=== PATIENT | male | born 1940 | race African-American/Black ===

== ENCOUNTER 2016-12-21 12:27 | Inpatient (IN) | payer OTHER, MEDICARE ==
--- NOTE | 2016-12-21 13:18 | PDOC ---
History of Present Illness - General Chief Complaint: Altered Mental Status Stated Complaint: (PCP SENT) FOR EVALUATION Time Seen by Provider: 12/21/16 12:50 History Source: Patient Exam Limitations: No Limitations - History of Present Illness Initial Comments: 12/21/16 13:40 76y M hx of dm, htn, hl, cad muitple recent strokes dx as an outpatient presents for evaluation. The pt had a stroke in Oct and again in Nov, both had outpatient MRIs. The patient went to speech rehab today and the rehab person said they should probably get admitted fo ra workup. The patient has otherwise been following up with PMD (Dr. Costa) and an neurologist at [place] for workup. Pt currently has a holter monitor. per the family, there seems to be worsening of his speech - no new weakness, fever/chills, chest pain, headache, dizziness, n/v, or other concerns.. They called dr. Costa who sent him to the ED. Per dr. Costa, who saw him in early nov, he was mildly aphasic but his speech was intellible NIH Stroke Scale - Last Known Well Date/Time & Onset Date Last Known Well: 11/25/16 Time Last Known Well: 22:00 - Initial Evaluation Level of consciousness: Alert Best gaze (horizontal eye movement): Normal Visual field testing: No visual field loss Facial paresis (Show teeth/raise eyebrows/close eyes tight): Normal symmetrical movement Motor Function: Left Arm: Normal Motor Function: Right Arm: Normal (extends arm 90 (or 45) degrees for 10 seconds without drift Motor Function: Left Leg: Normal (extends leg 30 degrees for 5 seconds without drift) Motor Function: Right Leg: Normal (extends leg 30 degrees for 5 seconds without drift) Limb Ataxia: No ataxia Sensory(Use pinprick test arms,legs,trunk,face/side to side): Normal Best language (Describe picture, name items, read sentences): Severe aphasia Past History - Past Medical History Allergies/Adverse Reactions: Allergies Allergy/AdvReac Type Severity Reaction Status Date / Time No Known Allergies Allergy Unverified 12/21/16 12:32 Home Medications: Ambulatory Orders Amlodipine Besylate [Norvasc -] 2.5 mg PO DAILY 12/21/16 Aspirin [Aspirin EC] 81 mg PO DAILY 12/21/16 Carvedilol [Coreg] 25 mg PO BID 12/21/16 Finasteride 5 mg PO DAILY 12/21/16 Folic Acid 0.4 mg PO DAILY 12/21/16 Glipizide/Metformin HCl [Glipizide-Metformin 5-500 mg] 1 each PO TID 12/21/16 Lisinopril/Hydrochlorothiazide [Lisinopril-Hctz 20-25 mg Tab] 1 each PO DAILY Sitagliptin Phosphate [Januvia] 100 mg PO DAILY 12/21/16 Spironolactone 25 mg PO DAILY 12/21/16 Cardiac Disorders: Yes (afib?) Diabetes: Yes HTN: Yes Hypercholesterolemia: Yes Other medical history: angioplasty - Psycho/Social/Smoking Cessation Hx Suicidal Ideation: No Smoking History: Never smoked Information on smoking cessation initiated: No Hx Alcohol Use: No Drug/Substance Use Hx: No Substance Use Type: None Review of Systems - Review of Systems Able to Perform ROS?: Yes Comments:: 12/21/16 13:52 Constitutional - no reported Fever, Chills, weakness, HEENT: no reported vision changes, sore throat Respiratory: no reported cough, sob, hemoptysis Cardiac: no reported chest pain, palpitations, light headedness, leg swelling Abd/GI: no reported abd pain, nausea, vomiting, blood per rectum, melena, diarrhea : no reported dysuria, frequency, discharge Musculskelatal - no reported back pain, joint swelling skin - no reported bruising, erythema, rash neurological: +aphasia no reported headache, numbness, focal weakness, tingling , ataxia, weakness hematologic: no reported anemia, easy bruising, easy bleeding *Physical Exam - Vital Signs Last Vital Signs Temp Pulse Resp BP Pulse Ox 98.1 F 81 17 128/64 98 12/21/16 12:30 12/21/16 12:30 12/21/16 12:30 12/21/16 12:30 12/21/16 12:30 - Physical Exam Comments: 12/21/16 13:53 GENERAL: The patient is awake, alert, and fully oriented, Nontoxic - in no acute distress. HEAD: Normocephalic, atraumatic. EYES: extraocular movements intact, sclera anicteric, conjunctiva clear. ENT: Normal voice, Moist mucous membranes. NECK: Normal range of motion, supple LUNGS: Breath sounds equal, clear to auscultation bilaterally. No wheezes, no rhonchi, no rales. HEART: Regular rate and rhythm, normal S1 and S2 without murmur, rub or gallop. ABDOMEN: Soft, nontender, normoactive bowel sounds. No guarding, no rebound. . No CVA tenderness EXTREMITIES: Normal range of motion, no edema. No clubbing or cyanosis. No cords, erythema, or tenderness. PSYCH: Normal mood, normal affect. SKIN: Warm, Dry, normal turgor, NEURO: Mental status: The patient is oriented x3. Cranial nerves: Cranial nerves II through XII are intact Motor: The upper extremities are 5 over 5 in all muscle groups. The lower extremities are 5 over 5 in all muscle groups. Negative pronator drift Sensation: Sensation is intact to light touch throughout. romberg negative Cerebellar: Liyugk-sdeeab-jskk is normal in both upper extremities. Heel-knee- walter is normal in both lower extremities. rapid alternating movements are normal. Reflexes: 2+ and symmetric in the upper and lower extremities. Gait: Normal. Heel and toe walking are normal. Tandem gait is normal. Speech: Aphasic Heart Score/ECG Review - ECG Impressions Comment:: 12/21/16 14:46 Twelve-lead EKG was performed and reviewed by me. There is normal sinus rhythm with a normal rate. Rate of 74 first degree AV block PVCs present Right bundle-branch block There are no ST or T wave abnormalities. ED Treatment Course - LABORATORY CBC & Chemistry Diagram: 12/21/16 13:28 12/21/16 13:28 Medical Decision Making - Medical Decision Making 12/21/16 13:18 12/21/16 16:22 the pts labs reviewed noted for mild elevation of cr with k of 5.[address] costa and the family - it seems there has been changes /worsening of the pts aphasia will admit hte pt for further management due to the patients multiple cvas and worsening sypmtoms/speech will page dr. patel regarding admission. 12/21/16 16:[address] patel agreed with admission for progerssive symtoms an dstroke workup Case discussed in detail with admitting physician including history, physical exam and ancillary studies. Admitting physician has assumed care for the patient, will follow all pending diagnostics and will complete the evaluation and treatment. *DC/Admit/Observation/Transfer Diagnosis at time of Disposition: Aphasia, Renal insufficiency - Discharge Dispostion Condition at time of disposition: Guarded Admit: Yes - Referrals Referrals: Jamar Costa MD [Primary Care Provider] -
[2016-12-21 13:56] LABS: BASOPHIL 0.4 % (0-2.0); EOSINOPHIL 3.3 % (0-4.5); MCH 30.5 pg (25.7-33.7); MEAN CELL VOLUME 92.3 fl (80-96); NEUTROPHILS 67.3 % (42.8-82.8); PLATELET COUNT 134 K/MM3 (134-434); RDW 13.2 % (11.9-15.9); WHITE BLOOD COUNT 8.5 K/mm3 (4.0-10.0)
[2016-12-21 14:07] LABS: INR 1.02 (0.82-1.09); PROTHROMBIN TIME (PATIENT) 11.2 SEC (9.98-11.88)
[2016-12-21 14:09] LABS: ALBUMIN 3.6 g/dl (3.4-5.0); BILIRUBIN,TOTAL 0.5 mg/dL (0.2-1.0); CALCIUM 9.1 mg/dL (8.5-10.1); CREATININE 1.6 mg/dL (0.7-1.3); TOT PROT 7.1 g/dl (6.4-8.2)
--- NOTE | 2016-12-21 15:25 | EKG ---
Test Reason : Blood Pressure : / mmHG Vent. Rate : 074 BPM Atrial Rate : 074 BPM P-R Int : 216 ms QRS Dur : 122 ms QT Int : 390 ms P-R-T Axes : 064 087 065 degrees QTc Int : 432 ms SINUS RHYTHM WITH SINUS ARRHYTHMIA WITH 1ST DEGREE A-V BLOCK WITH OCCASIONAL PREMATURE VENTRICULAR COMPLEXES RIGHT BUNDLE BRANCH BLOCK ABNORMAL ECG NO PREVIOUS ECGS AVAILABLE Confirmed by LEILA WHITT, RICHIE ([id number]) on 12/21/2016 3:24:42 PM Referred By: Confirmed By:RICHIE DEE MD
[2016-12-21 18:09] LABS: PH,URINE 6.5 (5.0-8.0); URINE APPEARANCE CLEAR; URINE BILIRUBIN NEGATIVE (NEGATIVE); URINE BLOOD 1+ (NEGATIVE); URINE COLOR LT. YELLOW; URINE GLUCOSE (UA) NEGATIVE (NEGATIVE); URINE KETONE NEGATIVE (NEGATIVE); URINE LEUK ESTERASE NEGATIVE (NEGATIVE); URINE NITRITE NEGATIVE (NEGATIVE); URINE PROTEIN 1+ (NEGATIVE); URINE UROBILINOGEN 0.2 E.U/dl E.U./dl (0.2-1.0)
[2016-12-21 19:37] VITALS: BMI 31.2
[2016-12-21] MEDS ORDERED: INFLUENZA VACCINE 45 MCG/0.5 ML (MDV 16-17) IM ONE (19:37)
[2016-12-21] MEDS: ATORVASTATIN CA 10 MG TABLET (FP) PO SCH (21:46)
[2016-12-21] MEDS: CARVEDILOL 25 MG TABLET (FP) PO SCH (21:46)
[2016-12-21] MEDS ORDERED: PATIENT'S OWN MEDICATION (NON-FORMULARY) (Glipizide/Metformin Hcl [Glipizide-Metformin 5-5 PO SCH (22:00)
[2016-12-22] MEDS: INSULIN (NOVOLOG) ASPART 100 UNITS/ML 10ML VIAL SQ SCH ×3 (06:12→17:22)
[2016-12-22] MEDS: glipiZIDE 5 MG TABLET (FP) PO SCH ×3 (06:12→17:21)
[2016-12-22] MEDS ORDERED: INFLUENZA VACCINE 45 MCG/0.5 ML (MDV 16-17) IM ONE (06:15)
[2016-12-22] MEDS ORDERED: metFORMIN HCL 500 MG TABLET (FP) PO SCH (07:00)
[2016-12-22 08:28] LABS: BASOPHIL 0.7 % (0-2.0); EOSINOPHIL 3.2 % (0-4.5); MCH 30.5 pg (25.7-33.7); MCHC 33.2 g/dl (32.0-35.9); MEAN CELL VOLUME 91.9 fl (80-96); MEAN PLT VOLUME 10.1 fl (7.5-11.1); NEUTROPHILS 58.3 % (42.8-82.8); PLATELET COUNT 128 K/MM3 (134-434); RDW 13.1 % (11.9-15.9); WHITE BLOOD COUNT 8.7 K/mm3 (4.0-10.0)
[2016-12-22] MEDS ORDERED: ACETAMINOPHEN 325 MG TABLET (FP) PO PRN (08:35)
--- NOTE | 2016-12-22 08:38 | HP ---
Admitting History and Physical - Primary Care Physician PCP: Jamar Costa - Advance Directives Advance Directives: Yes: Health Care Proxy - Smoking History Smoking history: Never smoked - Alcohol/Substance Use Hx Alcohol Use: No <Caity Dickinson - Last Filed: 12/22/16 08:37> - Admission History of Present Illness: The patient is a 76-year-old male with a significant past medical history of hypertension, hyperlipidemia, coronary artery disease (currently on a Holter Monitor), recent strokes (diagnosed as outpatient with MRIs on 10/2016 and 2016) and diabetes mellitus who was sent to the emergency department by his PMD , Dr. Costa, yesterday, for further evaluation of speech difficulty. Patient was in speech rehabilitation yesterday, where is was noted to have difficulty with his speech and was advised for hospital admission. Family states that patient's speech has worsened. No new weakness, headaches, fever, chills. Patient has been following up with his PMD, Dr. Jamar Costa and his Neurologist (who is affiliated with [facility]). Patient sent to [facility] for further evaluation. Family requests different Neurologist from [facility]. CT of the head did not show any acute CVA. Patient admitted to Telemetry for further monitoring. Patient seen and examined today in Telemetry. Chart reviewed. Case was also discussed with patient's private PMD, yesterday. Patient comfortable. Denies chest pain or shortness of breath. Denies headaches or dizziness. Speech is clear. Walks with cane. No fever or chills. Denies urinary or bowel trouble. History Source: Patient, Medical Record <Alecia Patel - Last Filed: 12/22/16 10:29> Home Medications <Caity Dickinson - Last Filed: 12/22/16 08:37> <Alecia Patel - Last Filed: 12/22/16 10:29> - Allergies Allergies/Adverse Reactions: Allergies Allergy/AdvReac Type Severity Reaction Status Date / Time No Known Allergies Allergy Unverified 12/21/16 12:32 - Home Medications Home Medications: Ambulatory Orders Amlodipine Besylate [Norvasc -] 2.5 mg PO DAILY 12/21/16 Aspirin [Aspirin EC] 81 mg PO DAILY 12/21/16 Atorvastatin Ca [Lipitor] 80 mg PO DAILY 12/21/16 Carvedilol [Coreg] 25 mg PO BID 12/21/16 Clopidogrel Bisulfate [Plavix -] 75 mg PO DAILY 12/21/16 Finasteride 5 mg PO DAILY 12/21/16 Folic Acid 0.4 mg PO DAILY 12/21/16 Glipizide/Metformin HCl [Glipizide-Metformin 5-500 mg] 1 each PO TID 12/21/16 Lisinopril/Hydrochlorothiazide [Lisinopril-Hctz 20-25 mg Tab] 1 each PO DAILY Sitagliptin Phosphate [Januvia] 100 mg PO DAILY 12/21/16 Spironolactone 25 mg PO DAILY 12/21/16 Review of Systems Findings/Remarks: See HPI. <Alecia Patel - Last Filed: 12/22/16 10:29> Physical Examination Vital Signs: Vital Signs Temperature 98 F 12/22/16 05:36 Pulse Rate 65 12/22/16 05:36 Respiratory Rate 20 12/22/16 05:36 Blood Pressure 133/73 12/22/16 05:36 O2 Sat by Pulse Oximetry (%) 97 12/21/16 21:00 Labs: CBC, BMP 12/22/16 06:00 <Caity Dickinson - Last Filed: 12/22/16 08:37> Vital Signs: Vital Signs Temperature 98.8 F 12/22/16 09:35 Pulse Rate 72 12/22/16 09:35 Respiratory Rate 20 12/22/16 09:35 Blood Pressure 130/70 12/22/16 09:35 O2 Sat by Pulse Oximetry (%) 97 12/21/16 21:00 Constitutional: Yes: No Distress, Calm Eyes: Yes: Conjunctiva Clear, PERRL Neck: Yes: Supple, Trachea Midline, Other (No carotid bruits.) Cardiovascular: Yes: Regular Rate and Rhythm Respiratory: Yes: CTA Bilaterally Gastrointestinal: Yes: Soft Edema: No Neurological: Yes: Alert, Other (Left sided weakness. 5/5 right side. 4/5 left side.) Psychiatric: Yes: Alert Labs: CBC, BMP 12/22/16 06:00 12/22/16 06:00 <Alecia Patel - Last Filed: 12/22/16 10:29> Imaging - Results Chest X-ray: Report Reviewed Cat Scan: Report Reviewed EKG: Report Reviewed <Alecia Patel - Last Filed: 12/22/16 10:29> Problem List - Problems (1) Renal insufficiency Code(s): N28.9 - DISORDER OF KIDNEY AND URETER, UNSPECIFIED (2) CVA (cerebral vascular accident) Code(s): I63.9 - CEREBRAL INFARCTION, UNSPECIFIED (3) HTN (hypertension) Code(s): I10 - ESSENTIAL (PRIMARY) HYPERTENSION (4) Diabetes mellitus Code(s): E11.9 - TYPE 2 DIABETES MELLITUS WITHOUT COMPLICATIONS (5) Hyperlipidemia Code(s): E78.5 - HYPERLIPIDEMIA, UNSPECIFIED <Alecia Patel - Last Filed: 12/22/16 10:29> Assessment/Plan - Recent CVA. - No acute CVA. - Rule out arrythmia. - Monitor on Telemetry. - Cardiology consult noted and appreciated. - Discontinue Glucophage for now. - Monitor blood sugars. - Speech is clear now. - Physical Therapy. - Neurology consult pending. - Medications reviewed. - Check US of carotids. - DVT Prophylaxis. - Will follow. Documentation prepared by Alecia Patel, acting as a medical director for Caity Dickinson MD. <Alecia Patel - Last Filed: 12/22/16 10:29>
--- NOTE | 2016-12-22 09:09 | PN ---
Progress Note (short form) - Note Progress Note: Consult Dictated IMP: DM, multiple prior CVAS Admitted for worsening speech, concern for new CVA REC: 1. TELE: r/u occult AF 2. Echo and carotid US 3. Neuro eval.
[2016-12-22 09:21] LABS: ALBUMIN 3.5 g/dl (3.4-5.0); BILIRUBIN,TOTAL 0.7 mg/dL (0.2-1.0); CALCIUM 9.1 mg/dL (8.5-10.1); CREATININE 1.3 mg/dL (0.7-1.3)
--- NOTE | 2016-12-22 09:48 | CONS ---
DATE OF CONSULTATION: 12/22/2016 REQUESTING PHYSICIAN: Sonia Cabrera MD REASON FOR CONSULTATION: CVA. HISTORY OF PRESENT ILLNESS: The patient is a 76-year-old male admitted for concern of new CVA. He cannot really provide a history due to speech disturbance and therefore the history was obtained from the review of records and from the nurse. The patient has numerous cardiac risk factors, including diabetes and previous stroke x2. He was previously evaluated at an outside institution and is currently in the process of wearing an extended outpatient Holter monitor. He was admitted again due to worsening speech, concern for a new CVA. The patient denies chest pain or palpitations. He denies recent syncope. His presenting EKG shows sinus rhythm. Telemetry thus far has shown normal sinus rhythm with PVCs and his presenting EKG showed normal sinus rhythm with 1st-degree AV block, APC aberrantly conducted, no pathological Q waves, and no acute ST changes. PAST MEDICAL HISTORY: Includes prior CVAs, diabetes, hypertension, BPH. ALLERGIES: He has no known drug allergies. CURRENT MEDICATIONS: Spironolactone 25 mg daily, carvedilol 25 b.i.d., aspirin 81 daily, folic acid 0.5 daily, glipizide 5 mg t.i.d., hydrochlorothiazide 25 daily , sitagliptin 100 mg daily, atorvastatin 100 mg at bedtime, Lovenox 30 mg subcutaneous daily, amlodipine 2.5 daily, insulin sliding scale, lisinopril 20 daily, finasteride 5 daily. FAMILY HISTORY: Could not be obtained due to his clinical status. SOCIAL HISTORY: No smoking history recorded. PHYSICAL EXAMINATION:Vital Signs: He is afebrile, temperature 98.5, pulse 65, blood pressure 133/73, O2 saturation 97 on room air. Neck: Supple, with no bruits. Heart: S1, 2, regular. No murmurs. Chest: Clear. Abdomen: Soft, nontender. Extremities: With no significant pitting edema. LABORATORIES: White count 8.7, hematocrit 35.7, platelets 128. Sodium 139, potassium 5.5, BUN 35, creatinine 1.6, glucose 284, AST 13, ALT 21, alkaline phosphatase 92, albumin 36. CT scan showed numerous old CVAs but nothing acute. IMPRESSION: A 76-year-old male with diabetes and prior cerebrovascular accidents now admitted for worsening speech with concern for new cerebrovascular accident. PLAN: 1. Telemetry to rule out occult atrial fibrillation. 2. Continue aspirin. 3. Echocardiogram and carotid ultrasound. 4. Neurologic evaluation. Thank you for the consultation. LIZETTE PEREZ M.D. [id number] MTDD
[2016-12-22] MEDS ORDERED: PATIENT'S OWN MEDICATION (NON-FORMULARY) (Lisinopril/Hydrochlorothiazide [Lisinopril-Hctz PO SCH (10:00)
[2016-12-22] MEDS: FOLIC ACID 1 MG TABLET (FP) PO SCH (10:09)
[2016-12-22] MEDS: ASPIRIN COATED 81 MG TABLET.EC PO SCH (10:09)
[2016-12-22] MEDS: CARVEDILOL 25 MG TABLET (FP) PO SCH ×2 (10:09→21:36)
[2016-12-22] MEDS: FINASTERIDE 5 MG TABLET (FP) PO SCH (10:09)
[2016-12-22] MEDS: SPIRONOLACTONE 25 MG TABLET (FP) PO SCH (10:09)
[2016-12-22] MEDS: sitaGLIPtin PHOSPHATE 100 MG TABLET (FP) PO SCH (10:09)
[2016-12-22] MEDS: ENOXAPARIN NA (PORCINE) 30 MG/0.3 ML DISP.SYRIN SQ SCH (10:11)
[2016-12-22] MEDS: HYDROCHLOROTHIAZIDE 25 MG TABLET (FP) PO SCH (10:11)
[2016-12-22] MEDS: LISINOPRIL 20 MG TABLET (FP) PO SCH (10:11)
[2016-12-22] MEDS: amLODIPine BESYLATE 2.5 MG TABLET (FP) PO SCH (10:11)
--- NOTE | 2016-12-22 10:55 | CONSULT ---
Admitting History and Physical - Primary Care Physician PCP: Sonia Cabrera - Admission History of Present Illness: Per EMR: "History of Present Illness Initial Comments: 12/21/16 13:40 76y M hx of dm, htn, hl, cad muitple recent strokes dx as an outpatient presents for evaluation. The pt had a stroke in Oct and again in Nov, both had outpatient MRIs. The patient went to speech rehab today and the rehab person said they should probably get admitted fo ra workup. The patient has otherwise been following up with PMD (Dr. Costa) and an neurologist at [place] for workup. Pt currently has a holter monitor. per the family, there seems to be worsening of his speech - no new weakness, fever/chills, chest pain, headache, dizziness, n/v, or other concerns.. They called dr. Costa who sent him to the ED. Per dr. Costa, who saw him in early nov, he was mildly aphasic but his speech was intelligible" Selected Entries 12/21/16 12/21/16 12/21/16 12:30 18:50 19:15 Temperature 98.1 F 98.5 F 97.7 F 12/22/16 12/22/16 12/22/16 02:11 05:36 09:35 Temperature 98.6 F 98 F 98.8 F Laboratory Tests 12/21/16 12/22/16 13:28 06:00 WBC 8.5 8.7 History Source: Family Member, Medical Record Limitations to Obtaining History: Other (Moderate to severe expressive Aphasia/ mild to moderate receptive Aphasia.o x 3.) - Advance Directives Advance Directives: Yes: Health Care Proxy - Smoking History Smoking history: Never smoked - Alcohol/Substance Use Hx Alcohol Use: No - Social History Usual Living Arrangement: Yes: With Spouse Occupation: retired History - Admission Reason For Visit: APHASIA - Diagnostics X-ray: Report Reviewed CT Scan: Report Reviewed MRI: Report Reviewed - General Mental Status: Alert and Oriented, Awake and Alert, Able to Follow Commands ( follows 1 stage but not 2 stage commands) Attention: Intact Ability to Follow Directions: Fair Head/Neck Control: WFL - Hearing Hearing: Normal Hearing Aide: No Speech Evaluation - Communication Primary Language: GERMAN Communication: Yes: Simple Responses, Aphasia (responds best in single words during conversation and confrontation naming. Significant breakdown in expressive language during propositional speech tasks, with grammatic error, word omissions,and neologisms.) Oral Expression Ability: Yes: Moderate Impairment, Severe Impairment - Speech Production Able to Make Needs Known: Yes: Moderately Impaired, Severely Impaired Intelligibility: Yes: WNL - Speech Characteristics Voice Loudness: Normal Voice Pitch: Yes: Normal Voice Phonatory-based Quality: Yes: Normal Speech Pattern: Normal Nasal Resonance: Normal Articulation: Yes: Precise - Language/Auditory Comprehension Follows: Yes: 1 Stage Simple Commands Observation: Able to respond to yes/no queries: Yes, Comprehends Conversational Speech: Yes (simple 1 stage and simple conversation), Benefits from Slow Speech : Yes, Benefits from Repetiton: Yes, Benefits from Increased Volume of Speech: No - Language/Verbal Expression Aphasia: Yes: Nonfluent, Anomia, Impaired Repetition (repeats short high probabilty sentences but not longer o9r low prob), Paraphrasic Errors, Neologisms, Sound Errors, Grammatic Errors (omission of function words intermittently) Able to Respond to Simple Queries: Yes: Moderately Impaired, Severely Impaired Able to Communicate Wants and Needs: Yes: Moderately Impaired, Severely Impaired Functional Communication Status: Yes: Moderately Impaired, Severely Impaired - Swallow Evaluation/Bedside Assessment Current Nutritional Intake: Regular, Thin Liquids Dentition: Yes: Adequate Facial Symmetry at Rest: Symmetrical Facial Symmetry on Retraction: Symmetrical Facial Movement: Controlled Against Resistance Opening: Normal Against Resistance Closing: Normal Pucker Lips: Normal Smile: Normal Lingual Movement: Normal Lingual Speed of Movement: Normal Lingual Movement Strgth Against Opposition: Normal Lingual Movement Characteristics: Normal Velopharyngeal Movement: Normal Laryngeal Elevation: WFL Laryngeal Movement: Able to Palpate Rate of Intake: WFL Bolus Size: WFL Labial Seal: WFL Chewing: WFL Oral Prep Time: WFL A-P Transit: WFL Pocketing: None Timing of Swallow: WFL Coughing/Throat Clear: No Change in Voice: No Recommendations - Speech Evaluation, Impression/Plan Impression: Moderate to severe expressive Aphasia/mild to moderate receptive Aphasia. o x 3. Excellent rehab candidate for intensive sp/lang tx. Family educated on Aphasia and ways to facilitate compensation and recovery. - Disposition Discharge to: Rehabilitation Center - Dysphagia Impressions/Plan Swallowing Skills: WFL Dysphagia Impressions: No Impairment *Silent aspiration: cannot be R/O at bedside - Recommendations Diet Consistency: Regular Medication Administration: Whole with water Liquids: Thin Liquids
--- NOTE | 2016-12-22 18:58 | CONSULT ---
Consult - text type - Consultation Consultation Note: NEUROLOGICAL CONSULTATION is greatly appreciated: This 76 yo RH man with h/o HTN, DM, Chol, ASHD is maintained on amlodipine, ASAQ, carvedilol, furosamide, glipizide, metformin, lisinopril, HCTZ , spironolacftone and januvia. S/P Left hipo surgery in childhood. Has always walked on L toes. His describes admissions for "strokes" in October and november. In October he "got flushed and sweaty" and in November he "had a BP of 200." She also describes her as "going steadily down since then." He had MRI's x 2 ([facility]) and has been followed at [facility]. Now admitted after Speech therapist apparently detected deterioration. CT of head (reviewed): Diffuse, b/l, frontotemporal atrophy. Very old R internal capsule CVA with encephalomalacia and disproportionate enlargement of the right lateral ventrical. Bifrontal white matter edema vs. microvasculopathy. BE: No bruits. Cor: Reg. No evidence of external head trauma. NEURO: Non-fluent aphasia with perseveration, dysnomia. Follows most commands. + Glabella, snout, suck, grasps. CN's: Full hernandes to threat. [id number]. Full EOM's. No dysphagia. No facial weakness Motor: No drift or tremor. Normal strength. Normal reflexes. Toes are downgoing. Coord: No FTN Dystaxia. Sensory: Normal Gait: Slightly wide-based. Left toe walking. Unsteady (walks with walker at home.) IMP: 1. Multiple REHAB DIRECTOR microinfarcts. Possible old Right frontal lobar hemorrhage (amyloid angiopathy?). 2. A Moderate OMS (dementia) is also likely present. 3. Strokes may not fully explain progressive aphasia. Consider a progressive degenerative condition such as Primary Progressive Aphasia or Frontotemporal dementia. SUGGEST: Update MRI of brain (C-) Check B12, TSH, RPR. R/O toxic metabolic factors such as infection (repeat UA, C&S). Thank you very much, Eric Camreon MD
[2016-12-22] MEDS: ATORVASTATIN CA 10 MG TABLET (FP) PO SCH (21:36)
[2016-12-23] MEDS: glipiZIDE 5 MG TABLET (FP) PO SCH ×3 (06:28→18:15)
[2016-12-23] MEDS: INSULIN (NOVOLOG) ASPART 100 UNITS/ML 10ML VIAL SQ SCH ×3 (06:28→16:45)
[2016-12-23 07:36] LABS: THYROID STIMULATING HORMONE 1.83 uIU/ml (0.358-3.74)
[2016-12-23] MEDS: FINASTERIDE 5 MG TABLET (FP) PO SCH (10:35)
[2016-12-23] MEDS: HYDROCHLOROTHIAZIDE 25 MG TABLET (FP) PO SCH (10:35)
[2016-12-23] MEDS: SPIRONOLACTONE 25 MG TABLET (FP) PO SCH (10:35)
[2016-12-23] MEDS: CARVEDILOL 25 MG TABLET (FP) PO SCH ×2 (10:36→21:20)
[2016-12-23] MEDS: ASPIRIN COATED 81 MG TABLET.EC PO SCH (10:36)
[2016-12-23] MEDS: sitaGLIPtin PHOSPHATE 100 MG TABLET (FP) PO SCH (10:36)
[2016-12-23] MEDS: LISINOPRIL 20 MG TABLET (FP) PO SCH (10:36)
[2016-12-23] MEDS: FOLIC ACID 1 MG TABLET (FP) PO SCH (10:36)
[2016-12-23] MEDS: amLODIPine BESYLATE 2.5 MG TABLET (FP) PO SCH (10:36)
[2016-12-23] MEDS: ENOXAPARIN NA (PORCINE) 30 MG/0.3 ML DISP.SYRIN SQ SCH (10:38)
--- NOTE | 2016-12-23 11:12 | PN ---
Progress Note, Physician History of Present Illness: seen and examined today in nad. no overnight events. no new complaints. - Current Medication List Current Medications: Active Medications Acetaminophen (Tylenol -) 650 mg PO Q6H PRN PRN Reason: FEVER OR PAIN Amlodipine Besylate (Norvasc -) 2.5 mg PO DAILY [facility] Last Admin: 12/23/16 10:36 Dose: 2.5 mg Aspirin (Ecotrin -) 81 mg PO DAILY [facility] Last Admin: 12/23/16 10:36 Dose: 81 mg Atorvastatin Calcium (Lipitor -) 10 mg PO HS [facility] Last Admin: 12/22/16 21:36 Dose: 10 mg Carvedilol (Coreg -) 25 mg PO BID [facility] Last Admin: 12/23/16 10:36 Dose: 25 mg Enoxaparin Sodium (Lovenox -) 30 mg SQ DAILY [facility] Last Admin: 12/23/16 10:38 Dose: 30 mg Finasteride (Proscar -) 5 mg PO DAILY [facility] Last Admin: 12/23/16 10:35 Dose: 5 mg Folic Acid (Folic Acid -) 0.5 mg PO DAILY [facility] Last Admin: 12/23/16 10:36 Dose: 0.5 mg Glipizide (Glucotrol -) 5 mg PO TIDAC [facility] Last Admin: 12/23/16 10:35 Dose: 5 mg Hydrochlorothiazide (Hctz -) 25 mg PO DAILY [facility] Last Admin: 12/23/16 10:35 Dose: 25 mg Insulin Aspart (Novolog Vial) 0 units SQ TIDAC [facility] PRN Reason: Protocol Last Admin: 12/23/16 10:45 Dose: 8 units Lisinopril (Prinivil) 20 mg PO DAILY [facility] Last Admin: 12/23/16 10:36 Dose: 20 mg Sitagliptin Phosphate (Januvia -) 100 mg PO DAILY [facility] Last Admin: 12/23/16 10:36 Dose: 100 mg Spironolactone (Aldactone -) 25 mg PO DAILY [facility] Last Admin: 12/23/16 10:35 Dose: 25 mg - Objective Vital Signs: Vital Signs Temperature 97.8 F 12/23/16 08:17 Pulse Rate 70 12/23/16 08:17 Respiratory Rate 18 12/23/16 08:17 Blood Pressure 119/67 12/23/16 08:17 O2 Sat by Pulse Oximetry (%) 98 12/23/16 08:17 Constitutional: Yes: Well Nourished, No Distress, Calm Eyes: Yes: Conjunctiva Clear, EOM Intact, PERRL HENT: Yes: Atraumatic, Normocephalic Neck: Yes: Supple, Trachea Midline Cardiovascular: Yes: Regular Rate and Rhythm, S1, S2. No: Bradycardia, Tachycardia, Pulse Irregular, Bruit, JVD, Gallop, Murmur, Rub, S3, S4, Varicosities Respiratory: Yes: Regular, CTA Bilaterally. No: Rales, Rhonchi, Wheezes Gastrointestinal: Yes: Normal Bowel Sounds, Soft. No: Distention, Tenderness Musculoskeletal: Yes: WNL Extremities: Yes: WNL Edema: No Peripheral Pulses WNL: Yes Peripheral Pulses: Left Doralis Pedis: 2+, Right Dorsalis Pedis: 2+ Integumentary: Yes: WNL Neurological: Yes: Alert, Aphasia Psychiatric: Yes: Alert Labs: CBC, BMP 12/22/16 06:00 12/22/16 06:00 INR, PTT INR 1.02 (0.82-1.09) 12/21/16 13:28 - ....Imaging Chest X-ray: Report Reviewed, Image Reviewed EKG: Report Reviewed, Image Reviewed Other: Report Reviewed, Image Reviewed (tele-nsr, pvcs) Assessment/Plan IMP: DM, multiple prior CVAS Admitted for worsening speech, concern for new CVA REC: Tele monitoring has shown nsr, pvcs, no sign of afib or aflutter Echo showed normal LV systolic function, no sig valvular abnormalities Carotid doppler showed moderate atherosclerosis with no sig stenosis Neuro eval appreciated Cont current medical regimen for now
--- NOTE | 2016-12-23 11:41 | PN ---
Progress Note, Physician Chief Complaint: Events noted No distress family at bedside pt speaks clear but has difficulty finding words he is forgetful - Current Medication List Current Medications: Active Medications Acetaminophen (Tylenol -) 650 mg PO Q6H PRN PRN Reason: FEVER OR PAIN Amlodipine Besylate (Norvasc -) 2.5 mg PO DAILY [facility] Last Admin: 12/23/16 10:36 Dose: 2.5 mg Aspirin (Ecotrin -) 81 mg PO DAILY [facility] Last Admin: 12/23/16 10:36 Dose: 81 mg Atorvastatin Calcium (Lipitor -) 10 mg PO HS [facility] Last Admin: 12/22/16 21:36 Dose: 10 mg Carvedilol (Coreg -) 25 mg PO BID [facility] Last Admin: 12/23/16 10:36 Dose: 25 mg Enoxaparin Sodium (Lovenox -) 30 mg SQ DAILY [facility] Last Admin: 12/23/16 10:38 Dose: 30 mg Finasteride (Proscar -) 5 mg PO DAILY [facility] Last Admin: 12/23/16 10:35 Dose: 5 mg Folic Acid (Folic Acid -) 0.5 mg PO DAILY [facility] Last Admin: 12/23/16 10:36 Dose: 0.5 mg Glipizide (Glucotrol -) 5 mg PO TIDAC [facility] Last Admin: 12/23/16 10:35 Dose: 5 mg Hydrochlorothiazide (Hctz -) 25 mg PO DAILY [facility] Last Admin: 12/23/16 10:35 Dose: 25 mg Insulin Aspart (Novolog Vial) 0 units SQ TIDAC [facility] PRN Reason: Protocol Last Admin: 12/23/16 10:45 Dose: 8 units Lisinopril (Prinivil) 20 mg PO DAILY [facility] Last Admin: 12/23/16 10:36 Dose: 20 mg Sitagliptin Phosphate (Januvia -) 100 mg PO DAILY [facility] Last Admin: 12/23/16 10:36 Dose: 100 mg Spironolactone (Aldactone -) 25 mg PO DAILY [facility] Last Admin: 12/23/16 10:35 Dose: 25 mg - Objective Vital Signs: Vital Signs Temperature 97.8 F 12/23/16 08:17 Pulse Rate 70 12/23/16 08:17 Respiratory Rate 18 12/23/16 08:17 Blood Pressure 119/67 12/23/16 08:17 O2 Sat by Pulse Oximetry (%) 98 03/18/17 08:17 Constitutional: Yes: No Distress Cardiovascular: Yes: Regular Rate and Rhythm Respiratory: Yes: CTA Bilaterally Gastrointestinal: Yes: Normal Bowel Sounds, Soft. No: Abdomen, Obese, Tenderness Edema: No Labs: CBC, BMP 12/22/16 06:00 12/22/16 06:00 INR, PTT INR 1.02 (0.82-1.09) 12/21/16 13:28 Problem List - Problems (1) Aphasia Code(s): R47.01 - APHASIA (2) CVA (cerebral vascular accident) Code(s): I63.9 - CEREBRAL INFARCTION, UNSPECIFIED (3) Diabetes mellitus Code(s): E11.9 - TYPE 2 DIABETES MELLITUS WITHOUT COMPLICATIONS (4) HTN (hypertension) Code(s): I10 - ESSENTIAL (PRIMARY) HYPERTENSION (5) Hyperlipidemia Code(s): E78.5 - HYPERLIPIDEMIA, UNSPECIFIED Assessment/Plan PLAN Carotid doppler- no stenosis BRAIN MRI--Acute and chronic small infarcts WIll need Speech therapy Family requesting [facility] Neurology eval noted Cardiology eval noted Will check Brain MRA Tele does not show afib/flutter
[2016-12-23] MEDS: ATORVASTATIN CA 10 MG TABLET (FP) PO SCH (21:20)
[2016-12-24] MEDS: glipiZIDE 5 MG TABLET (FP) PO SCH ×2 (06:05→17:19)
[2016-12-24] MEDS: INSULIN (NOVOLOG) ASPART 100 UNITS/ML 10ML VIAL SQ SCH ×3 (06:07→17:19)
--- NOTE | 2016-12-24 09:00 | PN ---
Progress Note, Physician Chief Complaint: at bedside Pt still has trouble speaking forgetful moves all extremities - Current Medication List Current Medications: Active Medications Acetaminophen (Tylenol -) 650 mg PO Q6H PRN PRN Reason: FEVER OR PAIN Amlodipine Besylate (Norvasc -) 2.5 mg PO DAILY [facility] Last Admin: 12/23/16 10:36 Dose: 2.5 mg Aspirin (Ecotrin -) 81 mg PO DAILY [facility] Last Admin: 12/23/16 10:36 Dose: 81 mg Atorvastatin Calcium (Lipitor -) 10 mg PO HS [facility] Last Admin: 12/23/16 21:20 Dose: 10 mg Carvedilol (Coreg -) 25 mg PO BID [facility] Last Admin: 12/23/16 21:20 Dose: 25 mg Enoxaparin Sodium (Lovenox -) 30 mg SQ DAILY [facility] Last Admin: 12/23/16 10:38 Dose: 30 mg Finasteride (Proscar -) 5 mg PO DAILY [facility] Last Admin: 12/23/16 10:35 Dose: 5 mg Folic Acid (Folic Acid -) 0.5 mg PO DAILY [facility] Last Admin: 12/23/16 10:36 Dose: 0.5 mg Glipizide (Glucotrol -) 5 mg PO TIDAC [facility] Last Admin: 12/24/16 06:05 Dose: 5 mg Hydrochlorothiazide (Hctz -) 25 mg PO DAILY [facility] Last Admin: 12/23/16 10:35 Dose: 25 mg Insulin Aspart (Novolog Vial) 0 units SQ TIDAC [facility] PRN Reason: Protocol Last Admin: 12/24/16 06:07 Dose: Not Given Lisinopril (Prinivil) 20 mg PO DAILY [facility] Last Admin: 12/23/16 10:36 Dose: 20 mg Sitagliptin Phosphate (Januvia -) 100 mg PO DAILY [facility] Last Admin: 12/23/16 10:36 Dose: 100 mg Spironolactone (Aldactone -) 25 mg PO DAILY [facility] Last Admin: 12/23/16 10:35 Dose: 25 mg - Objective Vital Signs: Vital Signs Temperature 97.3 F L 12/24/16 08:42 Pulse Rate 74 12/24/16 08:42 Respiratory Rate 20 12/24/16 08:43 Blood Pressure 111/61 12/24/16 08:42 O2 Sat by Pulse Oximetry (%) 98 12/24/16 08:43 Constitutional: Yes: No Distress Cardiovascular: Yes: Regular Rate and Rhythm Respiratory: Yes: CTA Bilaterally Gastrointestinal: Yes: Normal Bowel Sounds, Soft. No: Distention, Tenderness Edema: No Neurological: Yes: Alert ...Motor Strength: WNL Psychiatric: Yes: Alert Labs: CBC, BMP 12/22/16 06:00 12/22/16 06:00 INR, PTT INR 1.02 (0.82-1.09) 12/21/16 13:28 Assessment/Plan PLAN Carotid doppler- no stenosis BRAIN MRI--Acute and chronic small infarcts WIll need Speech therapy Family requesting [facility] Neurology follow up Cardiology eval noted Brain MRA-- mild short segment stenosis left MCA and basilar artery Neck MRA-- 40% b/l ICA stenosis HBA1C- elevated-- increase Glipizide PT eval
[2016-12-24] MEDS: ENOXAPARIN NA (PORCINE) 30 MG/0.3 ML DISP.SYRIN SQ SCH (09:30)
[2016-12-24] MEDS: ASPIRIN COATED 81 MG TABLET.EC PO SCH (09:30)
[2016-12-24] MEDS: HYDROCHLOROTHIAZIDE 25 MG TABLET (FP) PO SCH (09:30)
[2016-12-24] MEDS: LISINOPRIL 20 MG TABLET (FP) PO SCH (09:30)
[2016-12-24] MEDS: CARVEDILOL 25 MG TABLET (FP) PO SCH ×2 (09:30→21:17)
[2016-12-24] MEDS: amLODIPine BESYLATE 2.5 MG TABLET (FP) PO SCH (09:30)
[2016-12-24] MEDS: SPIRONOLACTONE 25 MG TABLET (FP) PO SCH (09:30)
[2016-12-24] MEDS: FOLIC ACID 1 MG TABLET (FP) PO SCH (09:30)
[2016-12-24] MEDS: FINASTERIDE 5 MG TABLET (FP) PO SCH (09:31)
[2016-12-24] MEDS: sitaGLIPtin PHOSPHATE 100 MG TABLET (FP) PO SCH (09:35)
--- NOTE | 2016-12-24 09:37 | PN ---
Progress Note, Physician History of Present Illness: seen and examined today in nad. sitting in chair. no overnight events. no new complaints. - Current Medication List Current Medications: Active Medications Acetaminophen (Tylenol -) 650 mg PO Q6H PRN PRN Reason: FEVER OR PAIN Amlodipine Besylate (Norvasc -) 2.5 mg PO DAILY [facility] Last Admin: 12/23/16 10:36 Dose: 2.5 mg Aspirin (Ecotrin -) 81 mg PO DAILY [facility] Last Admin: 12/23/16 10:36 Dose: 81 mg Atorvastatin Calcium (Lipitor -) 10 mg PO HS [facility] Last Admin: 12/23/16 21:20 Dose: 10 mg Carvedilol (Coreg -) 25 mg PO BID [facility] Last Admin: 12/23/16 21:20 Dose: 25 mg Enoxaparin Sodium (Lovenox -) 30 mg SQ DAILY [facility] Last Admin: 12/23/16 10:38 Dose: 30 mg Finasteride (Proscar -) 5 mg PO DAILY [facility] Last Admin: 12/23/16 10:35 Dose: 5 mg Folic Acid (Folic Acid -) 0.5 mg PO DAILY [facility] Last Admin: 12/23/16 10:36 Dose: 0.5 mg Glipizide (Glucotrol -) 5 mg PO TIDAC [facility] Last Admin: 12/24/16 06:05 Dose: 5 mg Hydrochlorothiazide (Hctz -) 25 mg PO DAILY [facility] Last Admin: 12/23/16 10:35 Dose: 25 mg Insulin Aspart (Novolog Vial) 0 units SQ TIDAC [facility] PRN Reason: Protocol Last Admin: 12/24/16 06:07 Dose: Not Given Lisinopril (Prinivil) 20 mg PO DAILY [facility] Last Admin: 12/23/16 10:36 Dose: 20 mg Sitagliptin Phosphate (Januvia -) 100 mg PO DAILY [facility] Last Admin: 12/23/16 10:36 Dose: 100 mg Spironolactone (Aldactone -) 25 mg PO DAILY [facility] Last Admin: 12/23/16 10:35 Dose: 25 mg - Objective Vital Signs: Vital Signs Temperature 97.3 F L 12/24/16 08:42 Pulse Rate 74 12/24/16 08:42 Respiratory Rate 20 12/24/16 08:43 Blood Pressure 111/61 12/24/16 08:42 O2 Sat by Pulse Oximetry (%) 98 12/24/16 08:43 Constitutional: Yes: Well Nourished, No Distress, Calm Eyes: Yes: WNL, Conjunctiva Clear, EOM Intact, PERRL HENT: Yes: WNL, Atraumatic, Normocephalic Neck: Yes: WNL, Supple, Trachea Midline Cardiovascular: Yes: Regular Rate and Rhythm, S1, S2. No: Bradycardia, Tachycardia, Pulse Irregular, Bruit, JVD, Gallop, Murmur, Rub, S3, S4, Varicosities Respiratory: Yes: Regular, CTA Bilaterally. No: Rales, Rhonchi, Wheezes Gastrointestinal: Yes: WNL, Normal Bowel Sounds, Soft. No: Distention, Tenderness Musculoskeletal: Yes: WNL Extremities: Yes: WNL Edema: No Peripheral Pulses WNL: Yes Peripheral Pulses: Left Doralis Pedis: 2+, Right Dorsalis Pedis: 2+ Integumentary: Yes: WNL Neurological: Yes: Alert Psychiatric: Yes: Alert Labs: CBC, BMP 12/22/16 06:00 12/22/16 06:00 INR, PTT INR 1.02 (0.82-1.09) 12/21/16 13:28 - ....Imaging Chest X-ray: Report Reviewed, Image Reviewed EKG: Report Reviewed, Image Reviewed Other: Report Reviewed, Image Reviewed (tele-nsr, pvcs, no sig arrhythmia) Assessment/Plan IMP: DM, multiple prior CVAS Admitted for worsening speech, concern for new CVA REC: Tele monitoring has shown nsr, pvcs, no sign of afib or aflutter Echo showed normal LV systolic function, no sig valvular abnormalities Carotid doppler showed moderate atherosclerosis with no sig stenosis Brain MRA confirmed moderate plaque b/l ICA's no evidence of significant stenosis Brain MRI read as acute infarcts as well as chronic infarcts Neuro eval appreciated, to follow up HTN well controlled, cont current medical regimen for now If felt that pt may be having embolic CVA's and a DUSTIN would be beneficial at guiding treatment, will be available to perform.
[2016-12-24] MEDS: ATORVASTATIN CA 10 MG TABLET (FP) PO SCH (21:17)
[2016-12-25] MEDS: INSULIN (NOVOLOG) ASPART 100 UNITS/ML 10ML VIAL SQ SCH ×3 (06:07→16:54)
[2016-12-25] MEDS: glipiZIDE 5 MG TABLET (FP) PO SCH ×2 (06:07→16:54)
--- NOTE | 2016-12-25 08:15 | PN ---
Progress Note (short form) - Note Progress Note: Subjective Patient seen and examined. Chart reviewed. Comfortable. No complaints offered. Objective Last Vital Signs Temp Pulse Resp BP Pulse Ox 98.8 F 70 18 120/77 97 12/25/16 09:12 12/25/16 09:12 12/25/16 09:12 12/25/16 09:12 12/25/16 09:00 CBC, BMP 12/22/16 06:00 12/22/16 06:00 Laboratory Results - last 24 hr 12/24/16 12/24/16 12/24/16 09:34 11:22 17:14 POC Glucometer 193 196 201 12/25/16 06:02 POC Glucometer 117 Physical Exam Constitutional: Yes: No Distress Cardiovascular: Yes: Regular Rate and Rhythm Respiratory: Yes: CTA Bilaterally Gastrointestinal: Yes: Normal Bowel Sounds, Soft. No: Distention, Tenderness Edema: No Neurological: Yes: Alert ...Motor Strength: WNL Psychiatric: Yes: Alert Assessment and Plan Clinically stable. Continue present care. Neurology to follow. Monitor blood sugar. Family requesting [facility]. Will follow Documentation prepared by Maritza Bowman, acting as a medical scientist for Caity Dickinson MD.
[2016-12-25] MEDS ORDERED: PT OWN MED DRAWER 7, Y5N ONE (10:48)
[2016-12-25] MEDS: HYDROCHLOROTHIAZIDE 25 MG TABLET (FP) PO SCH (10:49)
[2016-12-25] MEDS: LISINOPRIL 20 MG TABLET (FP) PO SCH (10:49)
[2016-12-25] MEDS: FINASTERIDE 5 MG TABLET (FP) PO SCH (10:49)
[2016-12-25] MEDS: ENOXAPARIN NA (PORCINE) 30 MG/0.3 ML DISP.SYRIN SQ SCH (10:49)
[2016-12-25] MEDS: ASPIRIN COATED 81 MG TABLET.EC PO SCH (10:49)
[2016-12-25] MEDS: sitaGLIPtin PHOSPHATE 100 MG TABLET (FP) PO SCH (10:49)
[2016-12-25] MEDS: FOLIC ACID 1 MG TABLET (FP) PO SCH (10:49)
[2016-12-25] MEDS: SPIRONOLACTONE 25 MG TABLET (FP) PO SCH (10:50)
[2016-12-25] MEDS: CARVEDILOL 25 MG TABLET (FP) PO SCH ×2 (10:50→21:26)
[2016-12-25] MEDS: amLODIPine BESYLATE 2.5 MG TABLET (FP) PO SCH (10:50)
--- NOTE | 2016-12-25 11:24 | PN ---
Progress Note, Physician History of Present Illness: seen and examined today in nad. no overnight events. no new complaints. - Current Medication List Current Medications: Active Medications Acetaminophen (Tylenol -) 650 mg PO Q6H PRN PRN Reason: FEVER OR PAIN Amlodipine Besylate (Norvasc -) 2.5 mg PO DAILY [facility] Last Admin: 12/25/16 10:50 Dose: 2.5 mg Aspirin (Ecotrin -) 81 mg PO DAILY [facility] Last Admin: 12/25/16 10:49 Dose: 81 mg Atorvastatin Calcium (Lipitor -) 10 mg PO HS [facility] Last Admin: 12/24/16 21:17 Dose: 10 mg Carvedilol (Coreg -) 25 mg PO BID [facility] Last Admin: 12/25/16 10:50 Dose: 25 mg Enoxaparin Sodium (Lovenox -) 30 mg SQ DAILY [facility] Last Admin: 12/25/16 10:49 Dose: 30 mg Finasteride (Proscar -) 5 mg PO DAILY [facility] Last Admin: 12/25/16 10:49 Dose: 5 mg Folic Acid (Folic Acid -) 0.5 mg PO DAILY [facility] Last Admin: 12/25/16 10:49 Dose: 0.5 mg Glipizide (Glucotrol -) 10 mg PO BIDAC [facility] Last Admin: 12/25/16 06:07 Dose: 10 mg Hydrochlorothiazide (Hctz -) 25 mg PO DAILY [facility] Last Admin: 12/25/16 10:49 Dose: 25 mg Insulin Aspart (Novolog Vial) 0 units SQ TIDAC [facility] PRN Reason: Protocol Last Admin: 12/25/16 06:07 Dose: Not Given Lisinopril (Prinivil) 20 mg PO DAILY [facility] Last Admin: 12/25/16 10:49 Dose: 20 mg Sitagliptin Phosphate (Januvia -) 100 mg PO DAILY [facility] Last Admin: 12/25/16 10:49 Dose: 100 mg Spironolactone (Aldactone -) 25 mg PO DAILY [facility] Last Admin: 12/25/16 10:50 Dose: 25 mg - Objective Vital Signs: Vital Signs Temperature 98.8 F 12/25/16 09:12 Pulse Rate 70 12/25/16 09:12 Respiratory Rate 18 12/25/16 09:12 Blood Pressure 120/77 12/25/16 09:12 O2 Sat by Pulse Oximetry (%) 97 12/25/16 09:00 Constitutional: Yes: Well Nourished, No Distress, Calm Eyes: Yes: WNL, Conjunctiva Clear HENT: Yes: WNL, Atraumatic, Normocephalic Neck: Yes: WNL, Supple, Trachea Midline Cardiovascular: Yes: Regular Rate and Rhythm, S1, S2. No: Bradycardia, Tachycardia, Pulse Irregular, Bruit, JVD, Gallop, Murmur, Rub, S3, S4, Varicosities Respiratory: Yes: Regular, CTA Bilaterally. No: Rales, Rhonchi, Wheezes Gastrointestinal: Yes: Normal Bowel Sounds, Soft. No: Distention, Tenderness Musculoskeletal: Yes: WNL Extremities: Yes: WNL Edema: No Peripheral Pulses WNL: Yes Peripheral Pulses: Left Doralis Pedis: 2+, Right Dorsalis Pedis: 2+ Neurological: Yes: Alert, Aphasia Psychiatric: Yes: Alert Labs: CBC, BMP 12/22/16 06:00 12/22/16 06:00 INR, PTT INR 1.02 (0.82-1.09) 12/21/16 13:28 - ....Imaging Chest X-ray: Report Reviewed, Image Reviewed EKG: Report Reviewed, Image Reviewed Other: Report Reviewed, Image Reviewed (tele-nsr, pvcs, couplets) Assessment/Plan IMP: DM, multiple prior CVAS Admitted for worsening speech, concern for new CVA REC: Tele monitoring has shown nsr, pvcs, no sign of afib or aflutter Echo showed normal LV systolic function, no sig valvular abnormalities Carotid doppler showed moderate atherosclerosis with no sig stenosis Brain MRA confirmed moderate plaque b/l ICA's no evidence of significant stenosis Brain MRI read as acute infarcts as well as chronic infarcts Neuro eval appreciated, to follow up HTN well controlled, cont current medical regimen for now If felt that pt may be having embolic CVA's and a DUSTIN would be beneficial at guiding treatment, will be available to perform. Otherwise pt is acceptable for discharge from a cardiac standpoint
--- NOTE | 2016-12-25 15:19 | PN ---
Progress Note, [employer] - Note Progress Note: BRAIN MRI--Acute left temporal and chronic small infarcts. Pt continues to present with Aphasia, responding best in single words during conversation and confrontation naming. Significant breakdown persists in expressive language during propositional speech tasks, with grammatic error, word omissions,and neologisms. Selected Entries 12/24/16 12/24/16 12/24/16 02:00 06:00 08:42 Breakfast Lunch Supper Temperature 98.2 F 97.8 F 97.3 F L 12/24/16 12/24/16 12/24/16 11:22 14:51 14:54 Breakfast 100% Lunch 100% Supper Temperature 98.2 F 12/24/16 12/24/16 12/24/16 17:00 20:29 22:00 Breakfast Lunch Supper 100% Temperature 98.7 F 98.5 F 12/25/16 12/25/16 12/25/16 02:00 06:00 09:12 Breakfast Lunch Supper Temperature 97.9 F 97.8 F 98.8 F 12/25/16 13:56 Breakfast 75% Lunch 75% Supper Temperature 98.4 F
[2016-12-25] MEDS: ATORVASTATIN CA 10 MG TABLET (FP) PO SCH (21:26)
[2016-12-26] MEDS: glipiZIDE 5 MG TABLET (FP) PO SCH (06:23)
[2016-12-26] MEDS: INSULIN (NOVOLOG) ASPART 100 UNITS/ML 10ML VIAL SQ SCH ×2 (06:34→11:17)
[2016-12-26] MEDS: amLODIPine BESYLATE 2.5 MG TABLET (FP) PO SCH (09:50)
[2016-12-26] MEDS: FINASTERIDE 5 MG TABLET (FP) PO SCH (09:50)
[2016-12-26] MEDS: ASPIRIN COATED 81 MG TABLET.EC PO SCH (09:50)
[2016-12-26] MEDS: CARVEDILOL 25 MG TABLET (FP) PO SCH (09:51)
[2016-12-26] MEDS: FOLIC ACID 1 MG TABLET (FP) PO SCH (09:51)
[2016-12-26] MEDS: sitaGLIPtin PHOSPHATE 100 MG TABLET (FP) PO SCH (09:52)
[2016-12-26] MEDS: SPIRONOLACTONE 25 MG TABLET (FP) PO SCH (09:52)
--- NOTE | 2016-12-26 10:02 | PN ---
Progress Note, Physician Chief Complaint: no distress TELE: KELYR w/ PACs - Current Medication List Current Medications: Active Medications Acetaminophen (Tylenol -) 650 mg PO Q6H PRN PRN Reason: FEVER OR PAIN Amlodipine Besylate (Norvasc -) 2.5 mg PO DAILY [facility] Last Admin: 12/26/16 09:50 Dose: 2.5 mg Aspirin (Ecotrin -) 81 mg PO DAILY [facility] Last Admin: 12/26/16 09:50 Dose: 81 mg Atorvastatin Calcium (Lipitor -) 10 mg PO HS [facility] Last Admin: 12/25/16 21:26 Dose: 10 mg Carvedilol (Coreg -) 25 mg PO BID [facility] Last Admin: 12/26/16 09:51 Dose: 25 mg Enoxaparin Sodium (Lovenox -) 30 mg SQ DAILY [facility] Last Admin: 12/25/16 10:49 Dose: 30 mg Finasteride (Proscar -) 5 mg PO DAILY [facility] Last Admin: 12/26/16 09:50 Dose: 5 mg Folic Acid (Folic Acid -) 0.5 mg PO DAILY [facility] Last Admin: 12/26/16 09:51 Dose: 0.5 mg Glipizide (Glucotrol -) 10 mg PO BIDAC [facility] Last Admin: 12/26/16 06:23 Dose: 10 mg Hydrochlorothiazide (Hctz -) 25 mg PO DAILY [facility] Last Admin: 12/25/16 10:49 Dose: 25 mg Insulin Aspart (Novolog Vial) 0 units SQ TIDAC [facility] PRN Reason: Protocol Last Admin: 12/26/16 06:34 Dose: Not Given Lisinopril (Prinivil) 20 mg PO DAILY [facility] Last Admin: 12/25/16 10:49 Dose: 20 mg Sitagliptin Phosphate (Januvia -) 100 mg PO DAILY [facility] Last Admin: 12/26/16 09:52 Dose: 100 mg Spironolactone (Aldactone -) 25 mg PO DAILY [facility] Last Admin: 12/26/16 09:52 Dose: 25 mg - Objective Vital Signs: Vital Signs Temperature 98.6 F 12/26/16 05:33 Pulse Rate 67 12/26/16 05:33 Respiratory Rate 18 12/26/16 05:33 Blood Pressure 122/66 12/26/16 05:33 O2 Sat by Pulse Oximetry (%) 96 12/25/16 21:00 Constitutional: Yes: Calm Cardiovascular: Yes: Regular Rate and Rhythm Respiratory: Yes: CTA Bilaterally Gastrointestinal: Yes: Soft Edema: No Neurological: Yes: Alert Labs: CBC, BMP 12/22/16 06:00 12/22/16 06:00 INR, PTT INR 1.02 (0.82-1.09) 12/21/16 13:28 - ....Imaging EKG: Image Reviewed Assessment/Plan Assessment/Plan DM, multiple prior CVAS Admitted for worsening speech, concern for new CVA REC: Tele monitoring has shown nsr, pvcs, no sign of afib or aflutter Echo showed normal LV systolic function, no sig valvular abnormalities Carotid doppler showed moderate atherosclerosis with no sig stenosis Brain MRA confirmed moderate plaque b/l ICA's no evidence of significant stenosis Brain MRI read as acute infarcts as well as chronic infarcts Neuro eval appreciated, to follow up HTN well controlled, cont current medical regimen for now If felt that pt may be having embolic CVA's and a DUSTIN would be beneficial at guiding treatment, will be available to perform. Otherwise pt is acceptable for discharge from a cardiac standpoint
--- NOTE | 2016-12-26 10:28 | DS ---
Physical Examination Vital Signs: Vital Signs Temperature 98.6 F 12/26/16 05:33 Pulse Rate 67 12/26/16 05:33 Respiratory Rate 18 12/26/16 05:33 Blood Pressure 122/66 12/26/16 05:33 O2 Sat by Pulse Oximetry (%) 96 12/25/16 21:00 Constitutional: Yes: No Distress, Calm Cardiovascular: Yes: Regular Rate and Rhythm Respiratory: Yes: CTA Bilaterally Gastrointestinal: Yes: Normal Bowel Sounds, Soft, Abdomen, Obese. No: Distention, Tenderness Edema: No Labs: CBC, BMP 12/22/16 06:00 12/22/16 06:00 Discharge Summary Reason For Visit: APHASIA Current Active Problems Aphasia (Acute) CVA (cerebral vascular accident) (Acute) Diabetes mellitus (Acute) HTN (hypertension) (Acute) Hyperlipidemia (Acute) Renal insufficiency (Acute) Hospital Course: Admitted for worsening aphasia He has h/o CVA and was being seen by Neurologist at [facility]. Admitted here to [facility] for worsening aphasia and confusion. Carotid doppler- no stenosis BRAIN MRI--Acute and chronic small infarcts WIll need Speech therapy Family requesting [facility] Neurology evaluated Cardiology eval noted Brain MRA-- mild short segment stenosis left MCA and basilar artery Neck MRA-- 40% b/l ICA stenosis HBA1C- elevated-- increase Glipizide echo -- diastolic dysfunction tele- no Afib/Aflutter Pt is able to ambulate and has good motor strength will need rehab for speech therapy no signs of infection Condition: Improved - Instructions Referrals: Jamar Costa MD [Primary Care Provider] - Disposition: [facility] FACILITY - Home Medications Comprehensive Discharge Medication List: Ambulatory Orders Amlodipine Besylate [Norvasc -] 2.5 mg PO DAILY 12/21/16 Aspirin [Aspirin EC] 81 mg PO DAILY 12/21/16 Atorvastatin Ca [Lipitor] 80 mg PO DAILY 12/21/16 Carvedilol [Coreg] 25 mg PO BID 12/21/16 Clopidogrel Bisulfate [Plavix -] 75 mg PO DAILY 12/21/16 Finasteride 5 mg PO DAILY 12/21/16 Folic Acid 0.4 mg PO DAILY 12/21/16 Glipizide/Metformin HCl [Glipizide-Metformin 5-500 mg] 1 each PO TID 12/21/16 Lisinopril/Hydrochlorothiazide [Lisinopril-Hctz 20-25 mg Tab] 1 each PO DAILY Sitagliptin Phosphate [Januvia] 100 mg PO DAILY 12/21/16 Spironolactone 25 mg PO DAILY 12/21/16
[2016-12-26] MEDS ORDERED: LISINOPRIL 20 MG TABLET (FP) PO SCH (10:29)
[2016-12-26 11:00] VITALS: BP 117/75; PULSE 72; TEMP 98.3
[2016-12-26] MEDS: HYDROCHLOROTHIAZIDE 25 MG TABLET (FP) PO SCH (11:11)
[2016-12-26] MEDS: ENOXAPARIN NA (PORCINE) 30 MG/0.3 ML DISP.SYRIN SQ SCH (11:12)
== END 2016-12-26 12:55 | DRG 65 ==
LOC: JER 12:27 → JERBED 17:06 → J4W 19:04
PROVIDERS: ADMIT Internal Medicine; ATTEND Internal Medicine
DX: I63.9 Cerebral infarction, unspecified (principal); N17.9 Acute kidney failure, unspecified; R47.01 Aphasia; I25.10 Atherosclerotic heart disease of native coronary artery without angina pectoris; R29.702 NIHSS score 2; I10 Essential (primary) hypertension; E78.5 Hyperlipidemia, unspecified; E11.9 Type 2 diabetes mellitus without complications; Z79.84 Long term (current) use of oral hypoglycemic drugs; N40.0 Benign prostatic hyperplasia without lower urinary tract symptoms
CPT/HCPCS: 36415; 70450-TC; 70544-TC; 70547-TC; 70551-TC; 71020-TC; 80053; 80061; 81003; 81015; 82607; 83036; 83721; 84443; 85025; 85610; 93005; 93010; 93306-TC; 93880-TC; 97116-GP; 97161-GP; 99283-25; G0008; Q2037